=== PATIENT | male | born 1940 ===

== ENCOUNTER 2017-10-22 10:36 | Emergency (ER) | payer OTHER ==
[2017-10-22 10:37] VITALS: BMI 20.6
[2017-10-22 11:11] VITALS: BP 138/76; PULSE 94; RESP 16; TEMP 98; O2SAT 98
[2017-10-22] MEDS ORDERED: Naproxen 500 MG TAB PO ONE ×2 (12:13→12:20)
--- NOTE | 2017-10-22 12:46 | ED PDOC ---
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 states he just got released from [facility] yesterday and has not had his Naproxen 500mg and Prilosec 20mg for his R knee pain in 4 months. States that he was diagnosed sustained a R knee injury > 1 year ago and was treated by Dr. Ellis and had an MRI done. He was advised to f/u with an orthopedist but was not able to due to being in penitentiary. He was prescribed Naproxen and Prilosec by Dr. Ellis but is unable to get to his office. Denies new trauma, fever, numbness, tingling, rash, calf pain. Past Medical History Reviewed: Historical Data, Nursing Documentation, Vital Signs Vital Signs: Last Vital Signs Temp 98.0 F 10/22/17 11:08 Pulse 94 H 10/22/17 11:08 Resp 16 10/22/17 11:08 BP 138/76 10/22/17 11:08 Pulse Ox 98 10/22/17 11:08 - Medical History PMH: Back Problems Denies: Chronic Kidney Disease - Surgical History Surgical History: No Surg Hx - Family History Family History: States: Unknown Family Hx - Immunization History Hx Tetanus Toxoid Vaccination: No Hx Influenza Vaccination: No Hx Pneumococcal Vaccination: No - Home Medications Home Medications: Ambulatory Orders Medication Instructions Recorded Tamsulosin [Flomax] 0.4 mg PO DAILY #10 cap 06/17/16 Docusate [Colace] 100 mg PO BID #20 cap 06/26/16 Phosphate Enema [Fleet Enema 135 133 ml RC ONCE #1 nma 06/26/16 Ml] Tamsulosin [Flomax] 0.4 mg PO DAILY #15 cap 06/26/16 Naproxen [Naprosyn Tab] 375 mg PO BID #20 tab 07/06/16 Ciprofloxacin HCl [Cipro] 500 mg PO BID #10 tab 07/16/16 Naproxen [Naprosyn] 500 mg PO Q12H #20 tab 07/16/16 Tamsulosin [Flomax] 0.4 mg PO DAILY #6 cap 07/16/16 Naproxen [Naprosyn] 500 mg PO BID PRN #30 tab 12/21/17 Omeprazole Magnesium [Prilosec Otc] 20 mg PO DAILY #30 tablet. 10/22/17 - Allergies Allergies/Adverse Reactions: Allergies Allergy/AdvReac Type Severity Reaction Status Date / Time No Known Allergies Allergy Verified 10/20/16 09:29 Review of Systems ROS Statement: Except As Marked, All Systems Reviewed And Found Negative Physical Exam - Physical Exam Appears: Positive for: Well, Non-toxic, No Acute Distress Skin: Positive for: Normal Color, Warm. Negative for: Rash Extremity: Positive for: Normal ROM (FROM actively of R knee), Calf Tenderness ( no calf tenderness b/l), Other (R knee with minimal tenderness on medial surface but no swelling, deformity, warmth, or erythema) Neurologic/Psych: Positive for: Alert, Oriented - ECG O2 Sat by Pulse Oximetry: 98 - Progress ED Course And Treament: Naproxen 500mg PO ordered. MRI of R knee done on November 2016 reviewed. Pt. instructed to f/u with Dr. Ellis or orthopedist for further evaluation of R knee injury. Pt. verbalized understanding of f/u. 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 Disposition - Clinical Impression Clinical Impression: Knee pain - Patient ED Disposition Is Patient to be Admitted: No - Disposition Referrals: Stephan Escobar III, MD [Staff Provider] - Diego Ellis MD [Staff Provider] - Disposition: Routine/Home Disposition Time: 12:00 Condition: STABLE Prescriptions: Naproxen [Naprosyn] 500 mg PO BID PRN #30 tab PRN Reason: Pain Omeprazole Magnesium [Prilosec Otc] 20 mg PO DAILY #30 tablet. Instructions: Knee Pain (ED) Forms: [employer] ([place]) Print Language: CITIZ[place] OF [place]
== END 2017-10-22 12:54 | disposition home or self-care (01) ==
LOC: H.ER 10:36
DX: Z76.0 Encounter for issue of repeat prescription (principal)

== ENCOUNTER 2017-11-30 14:17 | Emergency (ER) | payer OTHER ==
[2017-11-30 14:17] VITALS: BMI 20.6
[2017-11-30 14:25] VITALS: BP 120/80; PULSE 79; RESP 18; TEMP 97; O2SAT 99
--- NOTE | 2017-11-30 15:34 | ED PDOC ---
HPI: General Adult Time Seen by Provider: 11/30/17 15:14 Chief Complaint (Nursing): Cough, Cold, Congestion Chief Complaint (Provider): Cough History Per: Patient History/Exam Limitations: no limitations Onset/Duration Of Symptoms: Days (1) Have you had recent travel within the past 21 days to any of the following countries: [place], [place], [place] or [place]?: No Current Symptoms Are (Timing): Still Present Additional Complaint(s): 77yo male, brought to ED by the police for evaluation. Patient reports he has had a cough for the past day and feels as if he has a fever. Patient has no other medical complaints. Past Medical History Reviewed: Historical Data, Nursing Documentation, Vital Signs Vital Signs: Last Vital Signs Temp 97 F L 11/30/17 14:22 Pulse 79 11/30/17 14:22 Resp 18 11/30/17 14:22 BP 120/80 11/30/17 14:22 Pulse Ox 99 11/30/17 15:34 - Medical History PMH: Back Problems Denies: Chronic Kidney Disease - Family History Family History: States: Unknown Family Hx - Immunization History Hx Tetanus Toxoid Vaccination: No Hx Influenza Vaccination: No Hx Pneumococcal Vaccination: No - Home Medications Home Medications: Ambulatory Orders Medication Instructions Recorded Tamsulosin [Flomax] 0.4 mg PO DAILY #10 cap 06/17/16 Docusate [Colace] 100 mg PO BID #20 cap 06/26/16 Phosphate Enema [Fleet Enema 135 133 ml RC ONCE #1 nma 06/26/16 Ml] Tamsulosin [Flomax] 0.4 mg PO DAILY #15 cap 06/26/16 Naproxen [Naprosyn Tab] 375 mg PO BID #20 tab 07/06/16 Ciprofloxacin HCl [Cipro] 500 mg PO BID #10 tab 07/16/16 Naproxen [Naprosyn] 500 mg PO Q12H #20 tab 07/16/16 Tamsulosin [Flomax] 0.4 mg PO DAILY #6 cap 07/16/16 Naproxen [Naprosyn] 500 mg PO BID PRN #30 tab 10/22/17 Omeprazole Magnesium [Prilosec Otc] 20 mg PO DAILY #30 tablet. 10/22/17 - Allergies Allergies/Adverse Reactions: Allergies Allergy/AdvReac Type Severity Reaction Status Date / Time No Known Allergies Allergy Verified 11/30/17 14:22 Review of Systems Constitutional: Positive for: Fever (tactile) Respiratory: Positive for: Cough Physical Exam - Reviewed Nursing Documentation Reviewed: Yes Vital Signs Reviewed: Yes - Physical Exam Appears: Positive for: Non-toxic, No Acute Distress Head Exam: Positive for: ATRAUMATIC, NORMAL INSPECTION, NORMOCEPHALIC Skin: Positive for: Normal Color Eye Exam: Positive for: Normal appearance Neck: Positive for: Supple Cardiovascular/Chest: Positive for: Regular Rate, Rhythm Respiratory: Positive for: Normal Breath Sounds. Negative for: Wheezing, Respiratory Distress Neurologic/Psych: Positive for: Alert, Oriented - ECG O2 Sat by Pulse Oximetry: 99 (RA) Pulse Ox Interpretation: Normal Medical Decision Making Medical Decision Making: Impression: Cough Plan: -- Rapid flu -- CXR CXR - Normal Influenza (-) Scribe Attestation: Documented by Alma Medina acting as a scribe for MATTHEW Barclay Provider Attestation: All medical record entries made by the Scribe were at my direction and personally dictated by me. I have reviewed the chart and agree that the record accurately reflects my personal performance of the history, physical exam, medical decision making, and the department course for this patient. I have also personally directed, reviewed, and agree with the discharge instructions and disposition. Disposition - Clinical Impression Clinical Impression: Cough - Patient ED Disposition Is Patient to be Admitted: No Counseled Patient/Family Regarding: Diagnosis, Need For Followup - Disposition Disposition: Routine/Home Disposition Time: 16:31 Condition: GOOD Additional Instructions: Pt. medically and psychiatrically stable for incarceration. Instructions: Acute Cough (ED) Forms: [facility] (Bhutanese) Print Language: LITHUANIAN
--- NOTE | 2017-11-30 16:22 | RAD ---
HISTORY: pneumonia COMPARISON: Comparison is made with 01/02/2017 TECHNIQUE: Chest PA and lateral FINDINGS: LUNGS: Hyperinflation of the lungs is again noted. No radiographic evidence of pneumonia. PLEURA: No significant pleural effusion identified. No pneumothorax apparent. CARDIOVASCULAR: Normal. OSSEOUS STRUCTURES: No significant abnormalities. VISUALIZED UPPER ABDOMEN: Normal. OTHER FINDINGS: None. IMPRESSION: No radiographic evidence of pneumonia. No significant interval change noted since the previous exam.
== END 2017-11-30 16:40 ==
LOC: H.ER 14:17
DX: R05 Cough

== ENCOUNTER 2018-11-21 06:54 | Emergency (ER) | payer SELFPAY ==
[2018-11-21 07:04] VITALS: RESP 18; TEMP 98.5; O2SAT 98; BMI 24.1
[2018-11-21 08:24] VITALS: PULSE 85
--- NOTE | 2018-11-21 08:52 | ED PDOC ---
Lower Extremity Pain/Injury Time Seen by Provider: 11/21/18 07:15 Chief Complaint (Nursing): Lower Extremity Problem/Injury Chief Complaint (Provider): Chronic right knee pain History Per: Patient History/Exam Limitations: no limitations Onset/Duration Of Symptoms: Days (chronic) Current Symptoms Are (Timing): Still Present Additional Complaint(s): Alcon Baptiste is a 78 year old male, with a past medical history of arthritis and HTN, who presents to the emergency department complaining of a chronic right knee pain that worsened today. Patient states he was recently released from [facility] where he was given a pain medication. He reports being seen by PMD who told him he had a ligament problem. Patient denies any injury or trauma, chest pain, shortness of breath, headache, fever or chills. No further medical complaints. PMD: Diego Ellis Past Medical History Reviewed: Historical Data, Nursing Documentation, Vital Signs Vital Signs: Last Vital Signs Temp 98.5 F 11/21/18 07:03 Pulse 85 11/21/18 08:23 Resp 18 11/21/18 07:03 BP 155/99 H 11/21/18 08:23 Pulse Ox 98 11/21/18 07:03 - Medical History PMH: Arthritis, Back Problems, HTN Denies: Chronic Kidney Disease - Surgical History Surgical History: No Surg Hx - Family History Family History: States: Unknown Family Hx - Social History Current smoker - smoking cessation education provided: No Alcohol: None Drugs: Denies - Immunization History Hx Tetanus Toxoid Vaccination: No Hx Influenza Vaccination: No Hx Pneumococcal Vaccination: No - Home Medications Home Medications: Ambulatory Orders Medication Instructions Recorded Aspirin [Ecotrin] 81 mg PO DAILY 11/21/18 Multivit-Min/Iron/Folic Acid/K 1 tab PO DAILY 11/21/18 [Adults Multivitamin Tablet] Naproxen 375 mg PO BID #20 tablet 11/21/18 - Allergies Allergies/Adverse Reactions: Allergies Allergy/AdvReac Type Severity Reaction Status Date / Time No Known Allergies Allergy Verified 11/30/17 14:22 Review of Systems ROS Statement: Except As Marked, All Systems Reviewed And Found Negative Constitutional: Negative for: Fever, Chills Cardiovascular: Negative for: Chest Pain Respiratory: Negative for: Shortness of Breath Musculoskeletal: Positive for: Leg Pain (right knee pain) Physical Exam - Reviewed Nursing Documentation Reviewed: Yes Vital Signs Reviewed: Yes - Physical Exam Appears: Positive for: No Acute Distress Head Exam: Positive for: ATRAUMATIC, NORMAL INSPECTION, NORMOCEPHALIC Skin: Positive for: Normal Color, Warm, Dry Eye Exam: Positive for: Normal appearance, EOMI, PERRL Neck: Positive for: Normal, Painless ROM Extremity: Positive for: Normal ROM (Full ROM of right knee with pain). Negative for: Tenderness (right knee), Deformity (right knee), Swelling (right knee) Neurologic/Psych: Positive for: Alert, Oriented. Negative for: Motor/Sensory Deficits - ECG O2 Sat by Pulse Oximetry: 98 (RA) Pulse Ox Interpretation: Normal - Progress Re-evaluation Time: 11:45 Condition: Re-examined, Improved Medical Decision Making Medical Decision Making: Time: 07:15 Initial Impression: Chronic knee pain Initial Plan: --Toradol 15 mg IM --Ultram 50 mg PO --Reevaluation 11:45 Upon provider evaluation patient is medically stable, and requires no further treatment in the ED at this time. Patient will be discharged home. Counseling was provided and all questions were answered regarding diagnosis and need for follow up with PMD. There is agreement to discharge plan. Return if symptoms persist or worsen. ----- Scribe Attestation: Documented by Joselito Llanes, acting as a scribe for Adina Hernández MD Provider Scribe Attestation: All medical record entries made by the Scribe were at my direction and personally dictated by me. I have reviewed the chart and agree that the record accurately reflects my personal performance of the history, physical exam, medical decision making, and the department course for this patient. I have also personally directed, reviewed, and agree with the discharge instructions and disposition. Disposition - Clinical Impression Clinical Impression: Knee pain - Patient ED Disposition Is Patient to be Admitted: No Doctor Will See Patient In The: Office Counseled Patient/Family Regarding: Studies Performed, Diagnosis, Need For Followup - Disposition Referrals: Diego Ellis MD [Family Provider] - Disposition: Routine/Home Disposition Time: 11:45 Condition: GOOD Additional Instructions: ALCON BAPTISTE, thank you for letting us take care of you today. Your provider was Adina Hernández MD and you were treated for KNEE PAIN. The emergency medical care you received today was directed at your acute symptoms. If you were prescribed any medication, please fill it and take as directed. It may take several days for your symptoms to resolve. Return to the Emergency Department if your symptoms worsen, do not improve, or if you have any other problems. Please contact your doctor or call one of the physicians/clinics you have been referred to that are listed on the Patient Visit Information form that is included in your discharge packet. Bring any paperwork you were given at discharge with you along with any medications you are taking to your follow up visit. Our treatment cannot replace ongoing medical care by a primary care provider outside of the emergency department. Thank you for allowing the [facility] team to be part of your care today. If you had an X-Ray or CT scan: A Radiologist will review the ED reading if any change in treatment is needed we will contact you. If you had a blood, urine, or wound culture: It will take several days for the results, if any change in treatment is needed we will contact you. If you had an STI test: It will take 48 hours for the results. Please call after 1 week if you have not heard back. Prescriptions: Naproxen 375 mg PO BID #20 tablet Instructions: Chronic Knee Pain Print Language: YI
[2018-11-21 11:58] VITALS: BP 153/96
== END 2018-11-21 11:58 | disposition home or self-care (01) ==
LOC: H.ER 06:54
DX: G89.29 Other chronic pain (principal); I10 Essential (primary) hypertension; Z79.82 Long term (current) use of aspirin
CPT/HCPCS: 96372; 99284; J1885

== ENCOUNTER 2018-12-07 12:38 | Emergency (ER) | payer SELFPAY ==
[2018-12-07 12:38] VITALS: BMI 24.1
[2018-12-07 12:43] VITALS: BP 155/83; PULSE 82; RESP 16; TEMP 97; O2SAT 97
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
== END 2018-12-07 14:03 | disposition left against medical advice (07) ==
LOC: H.ER 12:38
DX: M54.5 Low back pain (principal); R35.0 Frequency of micturition; I10 Essential (primary) hypertension; N40.1 Benign prostatic hyperplasia with lower urinary tract symptoms; Z79.82 Long term (current) use of aspirin

== ENCOUNTER 2019-01-26 19:09 | Emergency (ER) | payer SELFPAY ==
[2019-01-26 19:09] VITALS: BMI 24.1
[2019-01-26 19:38] VITALS: BP 150/79; PULSE 69; RESP 16; TEMP 98.8; O2SAT 97
--- NOTE | 2019-01-26 20:18 | ED PDOC ---
HPI: General Adult Time Seen by Provider: 01/26/19 19:39 Chief Complaint (Nursing): Back Pain Chief Complaint (Provider): Back Pain History Per: Patient History/Exam Limitations: language barrier (Daniel Sanchez # [id number]), other (refused to answer questions) Current Symptoms Are (Timing): Still Present Additional Complaint(s): Patient is a 78 y/o male with no significant PMHx who presents to the ED complaints of atraumatic neck, lower back, and right knee pain. Patient states he has been taking Tylenol and Advil without relief. When patient was asked how long he has been experiencing these symptoms, patient began talking about his immigration status and how because of his immigration status he has been unable to see his PCP. Patient refused to answer questions regarding pain prompting the provider about the immigration policy. Patient left the ED, in the middle of obtaining his history, irate. Patient informed immigration status does not have any bearing on care in ED, however, still irate patient refused to listen and left ED before PE, ROS, and PMHx were obtained. Patient encouraged to stay but refused and left. PCP: Dr. Diego Ellis Past Medical History Reviewed: Historical Data, Nursing Documentation, Vital Signs Vital Signs: Last Vital Signs Temp 98.8 F 01/26/19 19:34 Pulse 69 01/26/19 19:34 Resp 16 01/26/19 19:34 BP 150/79 01/26/19 19:34 Pulse Ox 97 01/26/19 19:34 - Medical History PMH: Arthritis, Back Problems, HTN Denies: Chronic Kidney Disease - Surgical History Surgical History: No Surg Hx - Family History Family History: States: Unknown Family Hx - Immunization History Hx Tetanus Toxoid Vaccination: No Hx Influenza Vaccination: No Hx Pneumococcal Vaccination: No - Home Medications Home Medications: Ambulatory Orders Medication Instructions Recorded Aspirin [Ecotrin] 81 mg PO DAILY 11/21/18 Multivit-Min/Iron/Folic Acid/K 1 tab PO DAILY 11/21/18 [Adults Multivitamin Tablet] Naproxen 375 mg PO BID #20 tablet 11/21/18 - Allergies Allergies/Adverse Reactions: Allergies Allergy/AdvReac Type Severity Reaction Status Date / Time No Known Allergies Allergy Verified 12/07/18 12:39 Review of Systems Review Of Systems: ROS cannot be obtained secondary to pt's inabilty to answer questions. (Patient refused to answer questions, became irate, and left ED.) Musculoskeletal: Positive for: Neck Pain, Back Pain (lower), Other (right knee pain) Physical Exam - Reviewed Nursing Documentation Reviewed: Yes Vital Signs Reviewed: Yes - Physical Exam Comments: Patient left before PE could be obtained. - ECG O2 Sat by Pulse Oximetry: 97 (RA) Pulse Ox Interpretation: Normal Medical Decision Making Medical Decision Making: Time: 1944 Patient left before treatment. Scribe Attestation: Documented by Sidney Crespo, acting as a scribe Tamera Weir PA-C. Provider Scribe Attestation: All medical record entries made by the Scribe were at my direction and personally dictated by me. I have reviewed the chart and agree that the record accurately reflects my personal performance of the history, physical exam, medical decision making, and the department course for this patient. I have also personally directed, reviewed, and agree with the discharge instructions and disposition. Disposition - Clinical Impression Clinical Impression: Neck pain, Back pain, Knee pain - Patient ED Disposition Is Patient to be Admitted: No - Disposition Disposition: Left W/O Treatment Disposition Time: 20:17 Condition: FAIR Forms: [employer] (Slovenian)
== END 2019-01-26 20:00 | disposition left against medical advice (07) ==
LOC: H.ER 19:09
DX: M54.2 Cervicalgia (principal); M54.5 Low back pain; M25.561 Pain in right knee; I10 Essential (primary) hypertension